=== PATIENT | female | born 1960 | race Caucasian/White ===

== ENCOUNTER 2018-05-05 18:36 | Inpatient (IN) | payer SELFPAY ==
[2018-05-05 19:10] LABS: #Basophils 0.1 thou/uL (0.0-0.2); #Eosinphils 0.2 thou/uL (0.0-0.7); #Lymphocytes 3.6 thou/uL (1.20-3.40); #Monocytes 0.6 thou/uL (0.11-0.59); %Basophils 0.7 % (0.0-1.0); %Eosinophils 1.5 % (0.0-10.0); %Neutrophils 63.9 % (42.0-75.0); Hemoglobin 13.9 g/dL (12.0-16.0); Mean Corpuscular HGB CONC 33.5 g/dL (32.0-36.0); Mean Corpuscular Hemoglobin 29.3 pg (27.0-31.0); Mean Corpuscular Volume 87.6 fL (78.0-98.0); Mean Platelet Volume 7.1 fL (7.4-10.4); Platelet Count 418 thou/uL (130-400); RBC Distribution Width 12.5 % (11.5-14.5); Red Blood Cell (RBC) Count 4.74 mill/uL (4.20-5.40); White Blood Cell (WBC) Count 12.5 thou/uL (4.8-10.8)
[2018-05-05 19:12] LABS: Bilirubin Negative (Negative); Blood, Urine Negative (Negative); Clarity CLEAR (Clear); Glucose, Urine (Dipstick) Negative (Negative); Leukocyte Moderate (Negative); Nitrite Negative (Negative); Protein, Urine (Dipstick) Negative (Neg-Trace); Specific Gravity, Urine 1.019 (1.002-1.036); Urobilinogen 0.2 mg/dL (0.2-1.0)
[2018-05-05 19:14] LABS: Bacteria/HPF None Seen HPF (None Seen); Hyaline Casts/LPF 0-3 HYALINE CAST LPF (0-3 Hyaline); Pathc Cast-AUWi Flag 0.29 (0-2.49); RBC/HPF 0-3 HPF (0-3); Squamous Epithelial 0-3 HPF (0-3)
[2018-05-05 19:33] LABS: ALT (SGPT) 10 U/L (8-55); AST (SGOT) 20 U/L (5-34); Albumin 4.4 g/dL (3.5-5.0); Alkaline Phosphatase 136 U/L (40-150); Anion Gap 9 mmol/L (10-20); BUN (Urea Nitrogen) 13 mg/dL (9.8-20.1); Bilirubin, Total 0.3 mg/dL (0.2-1.2); Calc. Creatinine Clearance 0 mL/min (70-130); Calcium 9.9 mg/dL (7.8-10.44); Carbon Dioxide 34 mmol/L (22-29); Chloride 102 mmol/L (98-107); Estimated GFR-MDRD 53; Globulin 4.3 g/dL (2.4-3.5); Glucose 101 mg/dL (70-105); Lipase 30 U/L (8-78); Potassium 4.3 mmol/L (3.5-5.1); Protein, Total 8.7 g/dL (6.0-8.3); Sodium 141 mmol/L (136-145)
[2018-05-05] MEDS ORDERED: Morphine 2 MG/ML SYRINGE ONE (20:33)
[2018-05-05] MEDS ORDERED: Ketorolac Tromethamine 30 MG/ML VIAL ONE (20:33)
[2018-05-05] MEDS ORDERED: Ondansetron PF 4 MG/2 ML Vial ONE (20:33)
[2018-05-05 21:23] LABS: PTT 33.7 SEC (22.9-36.1); Prothrombin Time 12.9 SEC (12.0-14.7)
--- NOTE | 2018-05-05 21:23 | CT ---
CT ABDOMEN AND PELVIS WITHOUT CONTRAST: 05/05/2018 HISTORY: Right lower quadrant pain. Fever. COMPARISON: None. TECHNIQUE: Axial CT imaging obtained at 5 mm intervals, from the lung bases through the pubic symphysis, without contrast. Coronal reformatted imaging obtained. FINDINGS: There is a pulmonary nodule in the right middle lobe, unchanged when compared to a chest CT performed in 2014, measuring 7 mm. Small volume anterior pericardial fluid is noted, stable as well. Lack of contrast limits assessment of the viscera, bowel, and vascular structures, and for lymphadenopathy. There is no free intraperitoneal air noted. Multiple right upper quadrant post surgical clips are noted, suggesting prior cholecystectomy. The l iver, the spleen, the pancreas, the adrenal glands, and the kidneys are unremarkable. Small volume free fluid is noted in the pelvic cul-de-sac. There is scattered diverticulosis of the sigmoid colon with no evidence for diverticulitis. Numerous fluid-filled, mildly dilated loops of small bowel are seen proximally, within the left abdom en and the midline lower abdomen. Numerous distal decompressed small bowel loops are noted, with a t ransition point from distended small bowel to decompressed small bowel, in the anterior mid abdomen. Findings suggest small bowel obstruction. There is atherosclerotic calcification of the abdominal a timbo, mild and not well characterized on this exam. No acute osseous abnormality is seen. IMPRESSION: Evidence of small bowel obstruction with transition point from dilated to decompressed small bowel, i n the mid anterior lower abdomen. There is associated small volume free fluid in the pelvis. No elise dence for free intraperitoneal air. POS: [facility]
[2018-05-05 21:36] LABS: CKMB 1.7 ng/mL (0-6.6); Troponin I Less than 0.010 ng/mL (< 0.028)
[2018-05-05] MEDS ORDERED: Benzocaine 20% Spray 60 ML CAN ONE (21:48)
--- NOTE | 2018-05-05 21:54 | RAD ---
FRONTAL RADIOGRAPH CHEST: 05/05/2018 HISTORY: Preoperative patient. COMPARISON: 06/30/2013 FINDINGS: Clips in the right upper quadrant are noted, stable. No pneumothorax, pleural fluid, lobar consolida tion, or alveolar edema. IMPRESSION: No acute findings. POS: [facility]
[2018-05-06] MEDS ORDERED: Benzocaine 20% Spray 60 ML CAN PO PRN (00:24)
[2018-05-06] MEDS ORDERED: Cepastat Lozenges 1 LOZ PO PRN (00:25)
[2018-05-06 00:37] VITALS: BMI 28.3
[2018-05-06] MEDS ORDERED: Morphine 4 MG/ML VIAL SLOW IVP PRN ×3 (00:37→14:56)
[2018-05-06] MEDS ORDERED: Ondansetron ODT 4 MG TAB PO PRN (00:39)
[2018-05-06] MEDS: D5 1/2 NS w/20 mEq KCL 1,000 ML IV SCH ×2 (00:59→07:56)
[2018-05-06] MEDS: Ondansetron PF 4 MG/2 ML Vial IVP PRN ×4 (01:00→20:36)
[2018-05-06] MEDS: Pantoprazole 40 MG VIAL IVP SCH (07:56)
[2018-05-06] MEDS ORDERED: MD-Gastroview 120 ML BOT ONE (12:07)
[2018-05-06] MEDS: Ondansetron PF 4 MG/2 ML Vial SLOW IVP PRN ×2 (12:20→15:30)
[2018-05-06] MEDS ORDERED: Ondansetron ODT 8 MG TAB SL PRN (14:55)
[2018-05-06] MEDS ORDERED: Acetaminophen 1,000 MG in Premix Bag 1 BAG IVPB PRN (14:56)
[2018-05-06] MEDS: Lactated Ringer's 1,000 ML IV SCH (15:34)
--- NOTE | 2018-05-06 16:28 | RAD ---
CHEST ONE VIEW: 05/06/18 HISTORY: Chest pain. COMPARISON: Radiograph prior day. FINDINGS: Enteric tube is in place with tip at the gastric fundus. The lungs are hypoinflated with vascular crowd controller wding as well as bibasilar atelectasis. No pneumothorax. IMPRESSION: 1. The enteric tube tip at the gastric fundus. 2. Left layering with effusion as well as bibasilar atelectatic changes. POS: [facility]
[2018-05-06] MEDS: Ketorolac Tromethamine 30 MG/ML VIAL IVP PRN (18:03)
[2018-05-06] MEDS: Enoxaparin Sodium 40 MG/0.4 ML SYRINGE SC SCH (20:36)
--- NOTE | 2018-05-06 22:15 | RAD ---
SMALL BOWEL FOLLOW THROUGH: 05/06/18 HISTORY: Small bowel obstruction. FINDINGS: Via the patient's nasogastric tube, gastrografin was administered. 15 minutes following administratio n, there is contrast media within the duodenum proximally as well as the stomach. At 30 minutes, ther e is slight transit of contrast media into the proximal jejunum. On 45 minute imaging, the majority o f the contrast media is in the stomach. At one hour, there is some contrast media within proximal sma ll bowel loops which appear nondilated. Two hour imaging demonstrates opacification of a few dilated loops of small bowel in the mid abdomen/right lower quadrant. Similar findings are seen at three hour imaging. Five hour imaging demonstrates the contrast media to have reached the colon, extending into the region o the descending colon. IMPRESSION: The transit time of the contrast media from stomach to colon is delayed, between three and five hours . The contrast media does reach the colon, evidence that there is no complete small bowel obstruction . POS: [facility]
[2018-05-07] MEDS: Lactated Ringer's 1,000 ML IV SCH ×4 (01:01→20:31)
[2018-05-07] MEDS: Ondansetron PF 4 MG/2 ML Vial IVP PRN (01:37)
--- NOTE | 2018-05-07 08:39 | HP ---
HISTORY OF PRESENT ILLNESS: Evangelina Wong is a 57-year-old female who I saw years ago when her las t name was Robson for a laceration of her right forearm through a plate glass window accident. The pa markos reports to the hospital last night with a history consistent with a bowel obstruction. This pedroza s been going on for 3 days, abdominal pain, nausea, and vomiting. She has been admitted overnight wi th IV fluids, NG tube, 18 Mongolian. The patient had abdominal CAT scan at 6:00 p.m. yesterday revealin g findings consistent with probable bowel obstruction with a transition point. Pulmonary nodule, rig ht middle lobe, unchanged to CAT scan in 2013. No contrast was used. The patient has an NG tube in place and only 250 mL retrieved. She has been irrigated. Radiologically it was in good position. A bdominal x-rays this morning reveals some air fluid levels, some gas and stool in the colon and as st ated above few air fluid levels. White count is 12, hemoglobin 13. Comprehensive metabolic profile was normal. ALLERGIES: None. SOCIAL HISTORY: Tobacco none. Alcohol none. MEDICATIONS: Protonix, estradiol. PAST SURGICAL HISTORY: Three C-sections, total abdominal hysterectomy, bilateral salpingo-oophorecto my, open cholecystectomy, complex laceration right forearm repair that I performed years past. Upper endoscopy [address] Landin, 2006 normal colonoscopy, normal EGD 2006. In 11/1999 upper endosco py normal by Dr. Landin. PAST MEDICAL HISTORY: Elevated cholesterol. The patient had a colonoscopy in the last 5-10 years. 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 REVIEW OF SYSTEMS: Ten point noncontributory. PHYSICAL EXAMINATION: VITAL SIGNS: Height 4 foot 11, 140 pounds, 28 BMI. HEENT: Unremarkable. LUNGS: Clear to auscultation. CARDIAC: Regular rate and rhythm without murmur or gallop. ABDOMEN: Soft, slightly tender, some tympany. Bowel sounds diminished. NG tube in place. EXTREMITIES: Unremarkable. LABORATORY: White count 12, hemoglobin 13. Basic metabolic profile normal. ASSESSMENT AND PLAN: A bowel obstruction. We will obtain a small bowel follow through. Pending the se findings, she may need operative intervention according to the above facts. We will await small b owel follow through.
--- NOTE | 2018-05-07 09:01 | RAD ---
ABDOMEN TWO VIEWS: History: 57-year-old female with history of follow up small bowel obstruction. FINDINGS: There is some residual contrast media within the colon as well as in nondilated distal small bowel. T here is some sigmoid colon diverticulosis. IMPRESSION: Dilute contrast media within the colon and nondilated distal small bowel. POS: [facility]
[2018-05-07] MEDS: Pantoprazole 40 MG VIAL IVP SCH (09:36)
[2018-05-07] MEDS: Enoxaparin Sodium 40 MG/0.4 ML SYRINGE SC SCH (20:30)
[2018-05-08] MEDS: Lactated Ringer's 1,000 ML IV SCH ×2 (07:24→13:07)
[2018-05-08] MEDS: Pantoprazole 40 MG VIAL IVP SCH (08:57)
--- NOTE | 2018-05-08 09:40 | RAD ---
TWO VIEWS ABDOMEN: Comparison: 05-07-18 History: Small bowel obstruction. FINDINGS: Supine and upright views of the abdomen shows nonspecific, nonobstructed bowel gas pattern. Air and c ontrast is seen throughout the colon to the level of the rectum. Surgical clips are seen in the abdom en. The NG tube has been removed. IMPRESSION: Nonobstructed bowel gas pattern. POS: [facility]
[2018-05-08] MEDS: Ketorolac Tromethamine 30 MG/ML VIAL IVP PRN ×2 (13:51→21:37)
--- NOTE | 2018-05-08 20:26 | PRG ---
DATE OF SERVICE: 05/08/2018 SUBJECTIVE: Evangelina Wnog is feeling slightly bloated today. Temperature 98.5 degrees, pulse 73, and blood pressure 107/60. Laboratories; none today. Abdominal x-rays obtained today, revealed a nonspecific bowel gas pattern, however, the patient feels slightly bloated. She is attempting more regular diet. OBJECTIVE: LUNGS: Clear to auscultation. CARDIAC: Regular rate and rhythm without murmur or gallop. ABDOMEN: Soft, nontender. ASSESSMENT AND PLAN: Her abdominal x-rays reveal contrast residual in the colon. There does not appear to be dilated bowel loops. Has recalled on 05/06/2018, her small-bowel follow-through revealed a light transit of contrast to the colon taking 5 hours. She did have bowel movements subsequently. At this point, we will observe her and if she tolerates her diet, she may be able to go home tomorrow. Await observation over the next 24 hours. Job ID: [id number]
[2018-05-08] MEDS: Enoxaparin Sodium 40 MG/0.4 ML SYRINGE SC SCH (21:37)
[2018-05-09] MEDS: Ondansetron PF 4 MG/2 ML Vial IVP PRN ×2 (06:55→21:51)
[2018-05-09] MEDS: Polyethylene Glycol 3350 17 GM Packet PO SCH (10:15)
[2018-05-09] MEDS: Pantoprazole 40 MG VIAL IVP SCH (10:16)
[2018-05-09] MEDS: Ketorolac Tromethamine 30 MG/ML VIAL IVP PRN (21:51)
[2018-05-09] MEDS: Enoxaparin Sodium 40 MG/0.4 ML SYRINGE SC SCH (21:51)
--- NOTE | 2018-05-09 22:15 | PRG ---
DATE OF SERVICE: 05/09/2018 SUBJECTIVE: Ms. Wong is doing well today. No x-rays obtained. She feels slightly bloated, distended; although she has passed some gas. She is tolerating her regular diet, although feels bloated. OBJECTIVE: VITAL SIGNS: Temperature 98.1 degrees, pulse 62 and blood pressure 115/71. LUNGS: Clear to auscultation. CARDIAC: Regular rate and rhythm without murmur or gallop. ABDOMEN: Soft. Mild tympany. No guarding. No rebound. EXTREMITIES: Unremarkable. LABORATORY DATA: None. ASSESSMENT AND PLAN: Partial bowel obstruction. Continue soft low-fiber, low residue diet. Change to liquids as she is having cramps. Continue to observe for another day. Hopefully, she will be ready to discharge home this weekend. Job ID: [id number]
[2018-05-10] MEDS: Polyethylene Glycol 3350 17 GM Packet PO SCH (08:30)
[2018-05-10] MEDS: Pantoprazole 40 MG VIAL IVP SCH (08:30)
[2018-05-10] MEDS: Ondansetron PF 4 MG/2 ML Vial IVP PRN ×2 (10:22→21:23)
[2018-05-10] MEDS: D5 1/2 NS w/20 mEq KCL 1,000 ML IV SCH (15:04)
--- NOTE | 2018-05-10 20:20 | EKG ---
Test Reason : Blood Pressure : / mmHG Vent. Rate : 062 BPM Atrial Rate : 062 BPM P-R Int : 124 ms QRS Dur : 070 ms QT Int : 410 ms P-R-T Axes : 045 008 057 degrees QTc Int : 416 ms Normal sinus rhythm Low voltage QRS Cannot rule out Anterior infarct , age undetermined Abnormal ECG Confirmed by LAURA CHO, ROSE ([id number]), industrial editor ARGELIA MADRIGAL ([id number]) on 05/10/2018 8:20:03 PM Referred By: Confirmed By:ROSE SANCHEZ MD
[2018-05-10] MEDS: Enoxaparin Sodium 40 MG/0.4 ML SYRINGE SC SCH (21:22)
[2018-05-10] MEDS: Ketorolac Tromethamine 30 MG/ML VIAL IVP PRN (21:23)
[2018-05-11] MEDS: Ondansetron PF 4 MG/2 ML Vial IVP PRN (04:30)
[2018-05-11 06:12] LABS: #Basophils 0.1 thou/uL (0.0-0.2); #Eosinphils 0.1 thou/uL (0.0-0.7); #Lymphocytes 2.5 thou/uL (1.20-3.40); #Monocytes 0.5 thou/uL (0.11-0.59); #Neutrophils 3.1 thou/uL (1.40-6.50); %Basophils 0.8 % (0.0-1.0); %Eosinophils 2.1 % (0.0-10.0); %Lymphocytes 40.1 % (21.0-51.0); %Monocytes 7.5 % (0.0-10.0); %Neutrophils 49.5 % (42.0-75.0); Hemoglobin 11.8 g/dL (12.0-16.0); Mean Corpuscular HGB CONC 33.6 g/dL (32.0-36.0); Mean Corpuscular Hemoglobin 29.7 pg (27.0-31.0); Mean Corpuscular Volume 88.6 fL (78.0-98.0); Platelet Count 320 thou/uL (130-400); RBC Distribution Width 12.6 % (11.5-14.5); Red Blood Cell (RBC) Count 3.95 mill/uL (4.20-5.40); White Blood Cell (WBC) Count 6.3 thou/uL (4.8-10.8)
[2018-05-11 06:24] LABS: Phosphorus 3.4 mg/dL (2.3-4.7)
[2018-05-11] MEDS: D5 1/2 NS w/20 mEq KCL 1,000 ML IV SCH ×3 (08:29→18:04)
[2018-05-11] MEDS: Pantoprazole 40 MG VIAL IVP SCH (08:49)
[2018-05-11] MEDS: Polyethylene Glycol 3350 17 GM Packet PO SCH (08:55)
--- NOTE | 2018-05-11 10:11 | RAD ---
ABDOMEN TWO VIEWS: INDICATIONS: History of partial small bowel obstruction. FINDINGS: No dilated loops of bowel are present. Gas is present in the region of the rectum. Scattered surgic al clips within the right upper quadrant and lower midline abdomen are stable. No acute osseous abno rmality is noted. IMPRESSION: No obstructive changes seen involving the abdomen and pelvis. POS: [facility]
[2018-05-11 15:57] LABS: Anion Gap 9 mmol/L (10-20); BUN (Urea Nitrogen) 9 mg/dL (9.8-20.1); Calc. Creatinine Clearance 69 mL/min (70-130); Calcium 8.6 mg/dL (7.8-10.44); Carbon Dioxide 27 mmol/L (22-29); Chloride 109 mmol/L (98-107); Estimated GFR-MDRD 65; Glucose 94 mg/dL (70-105); Potassium 4.4 mmol/L (3.5-5.1); Sodium 141 mmol/L (136-145)
[2018-05-11] MEDS ORDERED: Iopamidol 370 76% 100 ML VIAL ONE (16:40)
[2018-05-11] MEDS: Enoxaparin Sodium 40 MG/0.4 ML SYRINGE SC SCH (20:28)
--- NOTE | 2018-05-11 21:49 | CT ---
CT ABDOMEN AND PELVIS WITH CONTRAST: Comparison: 05-05-18 History: Abdominal distention and pain since last Saturday. Technique: Multiple contiguous axial images were obtained in a CT of the abdomen and pelvis with cont rast. PO contrast was administered. Coronal reformats were performed. FINDINGS: Patient is status post cholecystectomy and hysterectomy. There is a subcentimeter hypodensity in the left lobe of the liver which is too small to definitely characterize but could represent a small cyst . The kidneys, adrenal glands, spleen and pancreas are unremarkable. No free air, free fluid, or stranding changes are seen in the abdomen or pelvis. There is scattered d iverticula in the colon. The small bowel is normal in caliber. The appendix is not see and may have b een removed. No abdominal or pelvic lymphadenopathy are seen. Atherosclerotic calcifications are seen in the aorta. The osseous structures, visualized inferior thorax are unremarkable. Stranding in the bilateral abdom inal wall is likely from recent injections. IMPRESSION: 1. No evidence of acute intraabdominal/pelvic abnormality. 2. Diverticulosis. POS: [facility]
[2018-05-12] MEDS ORDERED: Acetaminophen 1,000 MG in Premix Bag 1 BAG IVPB PRN (07:17)
[2018-05-12] MEDS ORDERED: Ketorolac Tromethamine 30 MG/ML VIAL IVP PRN (07:19)
[2018-05-12] MEDS: D5 1/2 NS w/20 mEq KCL 1,000 ML IV SCH ×2 (07:23→16:03)
[2018-05-12] MEDS: Pantoprazole 40 MG VIAL IVP SCH (08:22)
[2018-05-12] MEDS: Polyethylene Glycol 3350 17 GM Packet PO SCH ×2 (10:42→10:54)
[2018-05-12] MEDS: Ondansetron PF 4 MG/2 ML Vial IVP PRN (10:51)
[2018-05-12] MEDS ORDERED: Acetaminophen 500 MG TAB PO PRN (14:50)
--- NOTE | 2018-05-12 15:40 | PRG ---
DATE OF SERVICE: 05/12/2018 SUBJECTIVE: Judith is doing well today. CT scan oral IV contrast. There is no small bowel distention. The patient still feels occasionally bloating, for which she takes ice chips and liquids. OBJECTIVE: VITAL SIGNS: Temperature 98.1 degrees, pulse 62, blood pressure 117/60. LUNGS: Clear to auscultation. CARDIAC: Regular rate and rhythm without murmur or gallop. ABDOMEN: Soft and nontender. Bowel sounds present. ASSESSMENT AND PLAN: Nausea, occasional subjective bloating. We will advance her diet today. If she tolerates this well, plan to discharge home tomorrow; however, if she has problems, might consider other things such as diagnostic laparoscopy or upper endoscopy. Job ID: [id number]
[2018-05-12] MEDS: Enoxaparin Sodium 40 MG/0.4 ML SYRINGE SC SCH (20:08)
[2018-05-13] MEDS: D5 1/2 NS w/20 mEq KCL 1,000 ML IV SCH ×4 (01:11→21:39)
[2018-05-13] MEDS: Polyethylene Glycol 3350 17 GM Packet PO SCH (08:24)
[2018-05-13] MEDS ORDERED: Meropenem 2 GM in Sodium Chloride 0.9% 100 ML IVPB SCH (08:45)
--- NOTE | 2018-05-13 10:27 | PRG ---
DATE OF SERVICE: 05/13/2018 SUBJECTIVE: Evangelina Wong still feels bloated and nauseated every time she eats. Early in her hospitalization, she had a small bowel follow-through with marked delay of contrast taking more than 3 hours. Due to her postprandial complaints, we will plan laparoscopic possible laparotomy today. Risks and benefits explained. She consents. OBJECTIVE: LUNGS: Clear to auscultation. CARDIAC: Regular rate and rhythm without murmur or gallop. ABDOMEN: Soft, mildly distended, mildly tympanitic. VITAL SIGNS: Temperature 97.6 degrees, heart rate 60, blood pressure 118/69. ASSESSMENT AND PLAN: She has not had a bowel movement in the last several days and continues to complain of postprandial pain. Job ID: [id number]
[2018-05-13] MEDS: Enoxaparin Sodium 40 MG/0.4 ML SYRINGE SC SCH (21:37)
[2018-05-13] MEDS: Ondansetron PF 4 MG/2 ML Vial IVP PRN (21:48)
[2018-05-14] MEDS: D5 1/2 NS w/20 mEq KCL 1,000 ML IV SCH (02:54)
[2018-05-14] MEDS ORDERED: Fentanyl 250 MCG/5 ML VIAL ONE (06:21)
[2018-05-14] MEDS ORDERED: Bupivacaine/Epinephrine 0.25% 30 ML VIAL ONE (06:31)
[2018-05-14] MEDS ORDERED: Ketorolac Tromethamine 30 MG/ML VIAL ONE (06:38)
[2018-05-14] MEDS ORDERED: Bupivacaine HCl 0.5%/Epinephrine 1:200,000/PF 30 ml Vial ONE (06:42)
[2018-05-14] MEDS ORDERED: Meropenem 2 GM in Sodium Chloride 0.9% 100 ML IVPB SCH (07:00)
[2018-05-14] MEDS ORDERED: cefOXitin Sodium/Dextrose,Iso 2 GM in Premix Bag 1 BAG IVPB SCH (07:00)
[2018-05-14] MEDS ORDERED: Promethazine HCl 25 MG/ML VIAL SLOW IVP PRN ×2 (09:52)
[2018-05-14] MEDS ORDERED: PACU-Morphine 4MG/ML VIAL SLOW IVP PRN (09:52)
[2018-05-14] MEDS ORDERED: Ondansetron HCl/PF 4 MG/2 ML Vial IVP PRN ×2 (09:52)
[2018-05-14] MEDS ORDERED: HYDROmorphone 2 MG/ML VIAL SLOW IVP PRN (09:52)
[2018-05-14] MEDS ORDERED: Morphine Sulfate 2 MG/ML SYRINGE SLOW IVP PRN (09:52)
[2018-05-14] MEDS ORDERED: Promethazine HCl 25 MG/ML VIAL IM PRN ×2 (09:52)
[2018-05-14] MEDS ORDERED: Meperidine HCl/PF 25 MG/ML VIAL SLOW IVP PRN (09:52)
[2018-05-14] MEDS ORDERED: Zolpidem Tartrate 5 MG TAB PO PRN (10:15)
[2018-05-14] MEDS ORDERED: diphenhydrAMINE 50 MG/ML VIAL IM PRN (10:15)
[2018-05-14] MEDS ORDERED: diphenhydrAMINE 25 MG CAP PO PRN (10:15)
[2018-05-14] MEDS ORDERED: Naloxone HCl 0.4 mg/ml Vial IV PRN (10:15)
[2018-05-14] MEDS ORDERED: Morphine CADD 1 MG/ML CADD IVPB PRN (10:15)
[2018-05-14] MEDS ORDERED: diphenhydrAMINE 50 MG/ML VIAL IVP PRN (10:15)
[2018-05-14] MEDS ORDERED: Communication Order-Pharmacy FS SCH (10:15)
[2018-05-14] MEDS ORDERED: Fentanyl 100 MCG/2 ML VIAL ONE (10:25)
[2018-05-14] MEDS: Acetaminophen 1,000 MG in Premix Bag 1 BAG IVPB SCH ×2 (12:27→17:46)
[2018-05-14] MEDS: Lactated Ringer's 1,000 ML IV SCH ×2 (12:28→17:54)
[2018-05-14] MEDS: Ketorolac Tromethamine 30 MG/ML VIAL IVP SCH ×2 (12:28→17:46)
--- NOTE | 2018-05-14 13:13 | OP ---
DATE OF PROCEDURE: 05/14/2018 PREOPERATIVE DIAGNOSES: Partial bowel obstruction, adhesions from prior surgery. POSTOPERATIVE DIAGNOSES: Partial bowel obstruction, adhesions from prior surgery. PROCEDURE PERFORMED: Laparoscopic converted to open laparotomy with adhesiolysis. ANESTHESIA: General and local with 0.5% Marcaine with epinephrine infiltrating the skin and subcutaneous tissue about the laparoscopic trocar sites, left lateral abdomen. Seprafilm used. DESCRIPTION OF PROCEDURE: The patient was taken to the operating room, where under general anesthesia abdomen was prepared with ChloraPrep and draped in routine fashion. Joshi was placed at the beginning of the procedure and removed at the end. Left lateral subcostal incision was made. Pneumoperitoneum to 15 mmHg was obtained with a Veress needle, replaced with a 5 port, and the laparoscope inserted. There were adhesion-free areas in the left lateral abdomen and left lower quadrant. A lateral abdominal incision was made, and a 5 port was placed. Laparoscopic adhesiolysis was undertaken freeing the omentum and enabling visualization, but I could not adequately visualize the small bowel. The adhesions were so severe. Thus, a midline incision was made and carried down through skin and subcutaneous tissue and centered about the umbilicus. The abdominal cavity entered and adhesions were taken down. There were extensive small bowel adhesions with some segmental loop distention. Complete adhesiolysis was completed from the ileocecal valve to the ligament of Treitz. Small bowel was run three times, and seromuscular tear was closed with 3-0 silk Lembert sutures. No stool spillage occurred. Abdominal cavity was irrigated. Sponge and needle counts were correct. Seprafilm was placed between the omentum and the abdominal wall and fascia approximated with #1 PDS and skin with christa. Sterile dressing applied. Job ID: [id number]
[2018-05-14] MEDS: Ondansetron PF 4 MG/2 ML Vial IVP PRN ×2 (13:45→21:12)
[2018-05-14] MEDS ORDERED: Succinylcholine Chloride 20 MG/ML 10 ml SYRINGE FS ONE (16:45)
[2018-05-14] MEDS ORDERED: Lidocaine 1% PF 5 ML VIAL ONE (16:45)
[2018-05-14] MEDS ORDERED: PROPOFOL 200 MG/20 ML VIAL ONE (16:45)
[2018-05-14] MEDS ORDERED: PHENYLEPHRINE-NS 100 MCG/ML 10 ML SYRINGE ONE (16:45)
[2018-05-14] MEDS ORDERED: ePHEDrine/0.9% NaCl/PF SYRINGE 50 mg/10 ml ONE (16:45)
[2018-05-14] MEDS ORDERED: Ondansetron PF 4 MG/2 ML Vial ONE (16:45)
[2018-05-14] MEDS ORDERED: Glycopyrrolate 0.2 MG/ML 5 ML SYRINGE ONE (16:45)
[2018-05-14] MEDS ORDERED: Dexamethasone 20 MG/5 ML VIAL ONE (16:45)
[2018-05-14] MEDS: Enoxaparin Sodium 40 MG/0.4 ML SYRINGE SC SCH (21:12)
[2018-05-15] MEDS: Acetaminophen 1,000 MG in Premix Bag 1 BAG IVPB SCH ×4 (00:49→18:26)
[2018-05-15] MEDS: Ketorolac Tromethamine 30 MG/ML VIAL IVP SCH ×4 (00:49→18:26)
[2018-05-15] MEDS: Ondansetron PF 4 MG/2 ML Vial IVP PRN ×3 (04:20→19:56)
[2018-05-15] MEDS: Lactated Ringer's 1,000 ML IV SCH ×3 (04:48→18:26)
[2018-05-15 06:44] LABS: Anion Gap 12 mmol/L (10-20); BUN (Urea Nitrogen) 13 mg/dL (9.8-20.1); Calc. Creatinine Clearance 63 mL/min (70-130); Calcium 8.7 mg/dL (7.8-10.44); Carbon Dioxide 25 mmol/L (22-29); Chloride 103 mmol/L (98-107); Estimated GFR-MDRD 58; Glucose 104 mg/dL (70-105); Potassium 4.7 mmol/L (3.5-5.1); Sodium 135 mmol/L (136-145)
[2018-05-15 06:54] LABS: #Lymphocytes 1.7 thou/uL (1.20-3.40); #Monocytes 0.7 thou/uL (0.11-0.59); #Neutrophils 9.4 thou/uL (1.40-6.50); %Eosinophils 0.1 % (0.0-10.0); %Lymphocytes 14.3 % (21.0-51.0); %Monocytes 6.1 % (0.0-10.0); %Neutrophils 79.5 % (42.0-75.0); Hemoglobin 10.6 g/dL (12.0-16.0); Mean Corpuscular HGB CONC 30.8 g/dL (32.0-36.0); Mean Corpuscular Hemoglobin 27.8 pg (27.0-31.0); Mean Corpuscular Volume 90.1 fL (78.0-98.0); Mean Platelet Volume 7.8 fL (7.4-10.4); Platelet Count 321 thou/uL (130-400); RBC Distribution Width 12.9 % (11.5-14.5); White Blood Cell (WBC) Count 11.8 thou/uL (4.8-10.8)
[2018-05-15] MEDS: Pantoprazole 40 MG VIAL IVP SCH (09:01)
--- NOTE | 2018-05-15 15:31 | PRG ---
DATE OF SERVICE: 05/15/2018 SUBJECTIVE: Evangelina Wong is doing well today. OBJECTIVE: VITAL SIGNS: 98 degrees, 59, 92/56. LUNGS: Clear to auscultation. CARDIAC: Regular rate and rhythm without murmur or gallop. ABDOMEN: Soft. No bowel sounds. NG tube in place, 50 mL over 24 hours. LABORATORY DATA: White count 11, hemoglobin 10. Basic metabolic profile normal. ASSESSMENT AND PLAN: One day status post extensive adhesiolysis laparotomy. Adhesions are too extensive to do laparoscopically. There is no bowel dilation. No spillage. Await ileus resolution. Consider removal of NG tube in the next 24 hours. Pending clinical course. Increase activity. Ambulate and up in the chair and incentive spirometer use. She is on deep venous thrombosis prophylaxis. Lovenox daily. Job ID: [id number]
[2018-05-15] MEDS: Enoxaparin Sodium 40 MG/0.4 ML SYRINGE SC SCH (20:01)
[2018-05-15] MEDS: Promethazine HCl 25 MG/ML VIAL IM PRN (21:19)
[2018-05-16] MEDS: Ketorolac Tromethamine 30 MG/ML VIAL IVP SCH ×4 (00:17→17:30)
[2018-05-16] MEDS: Acetaminophen 1,000 MG in Premix Bag 1 BAG IVPB SCH ×4 (00:17→17:29)
[2018-05-16] MEDS: Lactated Ringer's 1,000 ML IV SCH ×3 (03:52→14:42)
[2018-05-16] MEDS: Promethazine HCl 25 MG/ML VIAL IM PRN (04:03)
[2018-05-16] MEDS: Pantoprazole 40 MG VIAL IVP SCH (09:27)
[2018-05-16] MEDS: Ondansetron PF 4 MG/2 ML Vial IVP PRN (14:39)
--- NOTE | 2018-05-16 19:18 | PRG ---
DATE OF SERVICE: 05/16/2018 SUBJECTIVE: Ms. Wong is doing well today. OBJECTIVE: VITAL SIGNS: Temperature 97.7, pulse 75, and blood pressure 109/68. Gastric output 250 per 24 hours. LUNGS: Clear to auscultation. CARDIAC: Regular rate and rhythm without murmur or gallop. ABDOMEN: Soft. Bowel sounds present. EXTREMITIES: Unremarkable. LABORATORY DATA: No laboratories today. ASSESSMENT AND PLAN: Await better GI function. Continue NG tube tonight. Hopefully, we can remove tomorrow. Good activity level. Remove abdominal dressings. Job ID: [id number]
[2018-05-16] MEDS: Enoxaparin Sodium 40 MG/0.4 ML SYRINGE SC SCH (22:52)
[2018-05-17] MEDS: Acetaminophen 1,000 MG in Premix Bag 1 BAG IVPB SCH ×3 (00:26→12:25)
[2018-05-17] MEDS: Ketorolac Tromethamine 30 MG/ML VIAL IVP SCH ×4 (00:27→17:30)
[2018-05-17] MEDS: Lactated Ringer's 1,000 ML IV SCH ×3 (00:34→17:30)
[2018-05-17] MEDS: Pantoprazole 40 MG VIAL IVP SCH (08:21)
[2018-05-17] MEDS ORDERED: Morphine 2 MG/ML SYRINGE SLOW IVP PRN (12:08)
--- NOTE | 2018-05-17 12:24 | PRG ---
DATE OF SERVICE: 05/17/2018 SUBJECTIVE: Evangelina Wong is doing well today. Her NG tube came out. registration officer, it was left out. It was found to be at 30 cm in her esophagus and was gagging her, thus it was removed. She has not had any nausea or vomiting since. LABORATORY DATA: White count 11, hemoglobin 10.6. Basic metabolic profile normal 2 days ago. OBJECTIVE: VITAL SIGNS: Temperature 97.7 degrees, pulse 64, and blood pressure 99/63. LUNGS: Clear to auscultation. CARDIAC: Regular rate and rhythm without murmur or gallop. ABDOMEN: Soft. Occasional bowel sounds. Wound looks good. EXTREMITIES: Unremarkable. ASSESSMENT AND PLAN: Postop adhesiolysis. NG tube will be left out. She will continue on sips and chips. Reassess her tomorrow as far as diet advancement based on clinical course today. Job ID: [id number]
[2018-05-17] MEDS: Enoxaparin Sodium 40 MG/0.4 ML SYRINGE SC SCH (20:53)
[2018-05-18] MEDS: Ketorolac Tromethamine 30 MG/ML VIAL IVP SCH ×4 (00:24→18:07)
[2018-05-18] MEDS: Lactated Ringer's 1,000 ML IV SCH ×4 (00:28→18:10)
[2018-05-18] MEDS: Pantoprazole 40 MG VIAL IVP SCH (08:04)
--- NOTE | 2018-05-18 16:21 | PRG ---
DATE OF SERVICE: 05/18/2018 SUBJECTIVE: Evangelina Wong is doing well today. She has not had any nausea or vomiting. She has not had any belching. She has not passed any flatus or stool. OBJECTIVE: LUNGS: Clear to auscultation. CARDIAC: Regular rate and rhythm without murmur or gallop. ABDOMEN: Soft. Diminished bowel sounds. EXTREMITIES: Wound well healed. No wound problems. VITAL SIGNS: Temperature 97.5 degrees, pulse 81, and blood pressure 146/80. LABORATORY DATA: No laboratories today. ASSESSMENT AND PLAN: Begin clear liquids, go slow if she has any nausea, bloating, belching, indigestion, pain, would diminish her input. Continue IV fluids and start a trial clear liquids p.o. Job ID: [id number]
[2018-05-18] MEDS: Enoxaparin Sodium 40 MG/0.4 ML SYRINGE SC SCH (21:13)
[2018-05-19] MEDS: Ketorolac Tromethamine 30 MG/ML VIAL IVP SCH ×3 (04:34→11:44)
[2018-05-19] MEDS: Lactated Ringer's 1,000 ML IV SCH ×3 (04:35→20:46)
[2018-05-19] MEDS: Pantoprazole 40 MG VIAL IVP SCH (08:48)
--- NOTE | 2018-05-19 17:48 | PRG ---
DATE OF SERVICE: 05/19/2018 SUBJECTIVE: Ms. Wong is doing well today. She is not passing gas or stool. She, however, is tolerating liquids. OBJECTIVE: VITAL SIGNS: 98.3, 75, 129/89. HEAD, EYES, EARS, NOSE, AND THROAT: Unremarkable. LUNGS: Clear to auscultation. CARDIAC: Regular rate and rhythm without murmur or gallop. ABDOMEN: Soft. Bowel sounds present. Nontender. EXTREMITIES: Unremarkable. ASSESSMENT AND PLAN: The patient is doing well. Continue clear liquids until better evidence of bowel function. Advance her diet when she has bowel movement and passes flatus. Continue IV fluids. Job ID: [id number]
[2018-05-19] MEDS: Enoxaparin Sodium 40 MG/0.4 ML SYRINGE SC SCH (20:47)
[2018-05-20] MEDS: Lactated Ringer's 1,000 ML IV SCH (09:03)
[2018-05-20] MEDS: Pantoprazole 40 MG VIAL IVP SCH (09:03)
[2018-05-20] MEDS ORDERED: Ibuprofen 600 MG TAB PO PRN (10:41)
[2018-05-20] MEDS ORDERED: traMADol HCl 50 MG TAB PO PRN ×2 (10:41)
[2018-05-20] MEDS ORDERED: Acetaminophen 500 MG TAB PO PRN (10:41)
--- NOTE | 2018-05-20 12:02 | PRG ---
DATE OF SERVICE: 05/20/2018 SUBJECTIVE: Evangelina Wong is doing well today. She has had a bowel movement. She has passed flatus. OBJECTIVE: VITAL SIGNS: 97.4 degrees, 61, 94% on room air, 121/67. LUNGS: Clear to auscultation. CARDIAC: Regular rate and rhythm without murmur or gallop. ABDOMEN: Soft, nontender. Bowel sounds present. Positive bowel movements. EXTREMITIES: Unremarkable. Negative Homans. No ankle edema. The patient is postoperative day #6. LABORATORY DATA: None. ASSESSMENT AND PLAN: Doing well. Bowel function recovering. I advanced diet to full liquids and advanced regular diet as tolerated. The patient can be discharged home today with followup in my office next week for balance of staple removal. We will remove 2/3 of her christa today and put Mastisol and Steri-Strips. Avoid lifting over 25 pounds. The patient will advance her diet as tolerated at home. She will be given Ultram for pain. Job ID: [id number]
[2018-05-20 15:42] VITALS: BP 122/81; TEMP 98.2
--- NOTE | 2018-05-21 05:19 | DIS ---
DATE OF ADMISSION: 05/05/2018 DATE OF DISCHARGE: 05/20/2018 PROCEDURES: CAT scan of the abdomen and pelvis on admission 05/05/2018, suggesting small bowel obstruction. Small-bowel follow through on 05/06/2018, revealing delayed transit to the colon after 5 hours, trial of nonoperative treatment, repeating CAT scan of abdomen and pelvis on 05/11/2018, revealing diverticulosis. Operation on 05/14/2018, for the patient's persistent complaints of nausea, bloating, postprandial. Her x-rays continued to demonstrate some distended small bowel loops. The patient was found to have extensive adhesions required conversion from laparoscopy to laparotomy. HISTORY: A 58-year-old female with prior surgical history of three C-sections, hysterectomy, bilateral salpingo-oophorectomy, open cholecystectomy, upper endoscopy [place] [address] Landin; in 2006, normal colonoscopy and normal esophagogastroduodenoscopy, presents with obstructive symptoms with above radiological findings. Trial of nonoperative therapy given even after a 5-hour delayed Gastrografin contrast transit to her colon. She, however, continued to have postprandial symptoms, could not tolerate her diet, undergone the above-described operation. She has had an expected ileus postoperatively, resolving and advancing her diet, resuming bowel function, discharged home with Ultram, Tylenol, and Motrin p.r.n. for pain. Job ID: [id number]
[2018-05-21] MEDS ORDERED: Polyethylene Glycol 3350 17 GM Packet PO SCH (09:00)
--- NOTE | 2018-05-21 09:06 | PQF ---
Evangelina Wong RICHARD D MD [id number] SURG B- [id number] CLINICAL DOCUMENTATION CLARIFICATION FORM: POST DISCHARGE DATE: 05/21/2018 ATTN: Dr. Izaguirre Please exercise your independent, professional judgment in responding to the clarification form. Clinical indicators are provided on the bottom of this form for your review Please check appropriate box(s): In the description of the operative procedure a seromuscular tear was noted by the surgeon. If possible would you please further clarify if this was: [ ] Seromuscular tear was an incidental occurrence inherent in the surgical procedure [ ] Seromuscular tear was a complication of the procedure [ ] Other (please specify) [ ] Unable to determine For continuity of documentation, please document condition throughout progress notes and discharge summary. Thank You. CLINICAL INDICATORS - SIGNS / SYMPTOMS / LABS Per body of operative report: Small bowel was run three times and seromuscular tear was closed with 3-0 silk Lembert sutures. No stool spillage occurred. RISK FACTORS Per operative report: Laparoscopic converted to open adhesiolysis due to severity of adhesions. There were extensive small bowel adhesions with some segmental loop distention. TREATMENTS: Per operative report: Laparoscopic converted to open laparotomy with adhesiolysis 05/14/18. (This form is maintained as a part of the permanent medical record) 2014 [employer]. All Rights Reserved [email or web address] [phone] [email or web address]
--- NOTE | 2018-05-21 09:31 | PQF ---
Evangelina Wong RICHARD D MD [id number] SURG B- 3328 [id number] CLINICAL DOCUMENTATION CLARIFICATION FORM: POST DISCHARGE DATE: 05/21/2018 ATTN: Dr. Izaguirre Please exercise your independent, professional judgment in responding to the clarification form. Clinical indicators are provided on the bottom of this form for your review Please check appropriate box(s): [ ] Expected postoperative ileus is a complication due to current surgery [ ] Expected postoperative ileus is not a complication due to current surgery [ ] Other diagnosis (please specify) [ ] Unable to determine In addition, please specify: Present on Admission (POA): [ ] Yes [ ] No [ ] Unable to determine CLINICAL INDICATORS - SIGNS / SYMPTOMS / LABS Per discharge summary: She has had an expected ileus postoperatively, resolving and advancing her diet, resuming bowel function. Per 05/15 progress note: Await ileus resolution. Per 05/16 progress note: Await better GI function. Per 05/17 progress note: Occasional bowel sounds. She will continue on sips and chips. Per 05/18 progress note: No nausea or vomiting. No belching. No flatus or stool. Diminished bowel sounds. Begin clear liquids. Per 05/19 progress note: She is not passing gas or stool. Is tolerating liquids. Continue clear liquids until better evidence of bowel function. Advance diet when she has bowel movement and passes flatus. Continue IV fluids. Per 05/20 progress note: She has had a bowel movement. Se has passed flatus. Bowel function recovering. Advanced diet to full liquids and advance regular diet as tolerated. RISK FACTORS Status post laparoscopic converted to open lysis of small bowel adhesions . TREATMENT: NG tube. IV Fluids. Clear liquids. (This form is maintained as a part of the permanent medical record) 2014 [employer]. All Rights Reserved [email or web address] [phone] [email or web address]
== END 2018-05-20 17:34 | disposition home or self-care (01) | DRG 337 ==
LOC: ERS 18:36 → SURG B 21:17
PROVIDERS: ADMIT Specialist; ATTEND Specialist
PROC: 0DN80ZZ Release Small Intestine, Open Approach (ICD-10-PCS; principal; 2018-05-14)
PROC: 0DNU4ZZ Release Omentum, Percutaneous Endoscopic Approach (ICD-10-PCS; 2018-05-14)
DX: K56.51 Intestinal adhesions [bands], with partial obstruction (principal); K56.7 Ileus, unspecified
CPT/HCPCS: 36415; 71045; 74019; 74022; 74176; 74177; 74250; 80048; 80053; 81003; 81015; 82553; 83690; 83735; 83880; 84100; 84134; 84484; 85025; 85610; 85730; 90471; 90686; 93005; 96365; 96366; 96375; C9113; G0008; J0131; J0670; J1100; J1650; J1885; J1956; J2001; J2270; J2274; J2405; J2550; J2704; J3010

== ENCOUNTER 2018-12-09 18:52 | Emergency (ER) | payer SELFPAY | END 2018-12-09 21:00 | disposition home or self-care (01) | LOC: ERS 18:52 | DX: S82.891D Other fracture of right lower leg, subsequent encounter for closed fracture with routine healing (principal); R11.0 Nausea; W18.2XXA Fall in (into) shower or empty bathtub, initial encounter | CPT/HCPCS: 29515 ==

== ENCOUNTER 2019-02-22 12:17 | Emergency (ER) | payer SELFPAY ==
[2019-02-22 12:37] LABS: #Lymphocytes 1.2 thou/uL (1.20-3.40); #Monocytes 0.4 thou/uL (0.11-0.59); %Basophils 0.3 % (0.0-1.0); %Eosinophils 0.8 % (0.0-10.0); %Lymphocytes 21.5 % (21.0-51.0); %Monocytes 7.2 % (0.0-10.0); %Neutrophils 70.1 % (42.0-75.0); Hemoglobin 13.1 g/dL (12.0-16.0); Mean Corpuscular HGB CONC 33.7 g/dL (32.0-36.0); Mean Corpuscular Hemoglobin 30.3 pg (27.0-31.0); Mean Corpuscular Volume 89.7 fL (78.0-98.0); Mean Platelet Volume 6.9 fL (7.4-10.4); Platelet Count 323 thou/uL (130-400); RBC Distribution Width 12.4 % (11.5-14.5); Red Blood Cell (RBC) Count 4.33 mill/uL (4.20-5.40); White Blood Cell (WBC) Count 5.7 thou/uL (4.8-10.8)
[2019-02-22 13:00] LABS: ALT (SGPT) 9 U/L (8-55); AST (SGOT) 17 U/L (5-34); Albumin 4.2 g/dL (3.5-5.0); Alkaline Phosphatase 137 U/L (40-150); Anion Gap 13 mmol/L (10-20); BUN (Urea Nitrogen) 13 mg/dL (9.8-20.1); Bilirubin, Total 0.3 mg/dL (0.2-1.2); Calc. Creatinine Clearance 0 mL/min (70-130); Calcium 9.3 mg/dL (7.8-10.44); Carbon Dioxide 25 mmol/L (22-29); Chloride 106 mmol/L (98-107); Estimated GFR-MDRD 64; Globulin 3.3 g/dL (2.4-3.5); Glucose 105 mg/dL (70-105); Lipase 22 U/L (8-78); Potassium 4.1 mmol/L (3.5-5.1); Protein, Total 7.5 g/dL (6.0-8.3); Sodium 140 mmol/L (136-145)
[2019-02-22] MEDS ORDERED: Iopamidol 370 76% 50 ML VIAL FS ONE (13:03)
[2019-02-22] MEDS ORDERED: ISOVUE-370 76%-LOCM 1 ML ONE (13:03)
[2019-02-22] MEDS ORDERED: Morphine 4 MG/ML VIAL ONE (13:18)
[2019-02-22] MEDS ORDERED: Ondansetron PF 4 MG/2 ML Vial ONE (13:18)
[2019-02-22 13:32] LABS: Bilirubin Negative (Negative); Blood, Urine Negative (Negative); Clarity Clear (Clear); Glucose, Urine (Dipstick) Normal (Negative); Leukocyte 25 Leu/uL (Negative); Nitrite Negative (Negative); Protein, Urine (Dipstick) Negative (Neg-Trace); RBC/HPF 0-3 HPF (0-3); Squamous Epithelial 0-3 HPF (0-3); Urobilinogen Normal mg/dL (Less than 2); WBC/HPF 0-3 HPF (0-3)
[2019-02-22 13:38] LABS: Bacteria/HPF None Seen HPF (None Seen)
[2019-02-22] MEDS ORDERED: Pantoprazole 40 MG VIAL ONE (14:26)
[2019-02-22] MEDS ORDERED: diphenhydrAMINE 50 MG/ML VIAL ONE (15:05)
--- NOTE | 2019-02-22 16:25 | CT ---
EXAM: CT ABDOMEN AND PELVIS HISTORY: Abdominal pain, x3 days. COMPARISON: 07/05/2018 Correlation: Chest CT 07/02/2013 Procedure: Multiple contiguous axial images were obtained and a CT of the abdomen and pelvis with IV contrast. C oronal reformats were performed. FINDINGS: Lower Chest: Stable 7 mm nodule in the right lower lobe. No change since June 2013. Vessels: Normal caliber aorta. Heart: Normal heart size. No significant pericardial fluid Abdomen: Portal vein:Patent Gallbladder: Surgically absent Liver: No enhancing masses. 6 mm hypodensity in the left hepatic lobe, unchanged from chest CT 2013. Hepatic cyst is favored. Pancreas: within normal limits. Spleen: within normal limits. Adrenals: within normal limits. Kidneys: Symmetric enhancement. No obstructive uropathy Peritoneum: No ascites or free air, no fluid collection. Bowel: Gastric mucosa, duodenum and multiple normal caliber small bowel loops. Ileocecal junction is normal. Appendix is not appreciated. No inflammation of the cecal apex. There are scattered fecal material in a nondistended, nondilated colon. Diverticulosis. No diverticulitis. Mesentery and Retroperitoneum: There are scattered nonspecific, nonenlarged mesenteric lymph nodes. L ymph nodes are unchanged from previous exam. Abdominal Wall: within normal limits. Pelvis: Reproductive Organs: Surgically absent uterus Pelvis: within normal limits. Bladder: within normal limits. Bones: within normal limits. IMPRESSION: No evidence of acute intraabdominal\pelvic abnormality.
== END 2019-02-22 16:59 | disposition home or self-care (01) ==
LOC: ERS 12:17
DX: R10.31 Right lower quadrant pain (principal)
CPT/HCPCS: 36415; 74177; 80053; 81003; 81015; 83690; 85025; 96374; 96375; C9113; J1200; J2270; J2405; Q9966; Q9967

== ENCOUNTER 2020-09-13 17:39 | Emergency (ER) | payer SELFPAY | END 2020-09-13 19:22 | disposition home or self-care (01) | LOC: ERS 17:39 | DX: M25.532 Pain in left wrist (principal); E78.5 Hyperlipidemia, unspecified; K56.609 Unspecified intestinal obstruction, unspecified as to partial versus complete obstruction; Z79.891 Long term (current) use of opiate analgesic ==

== ENCOUNTER 2021-07-31 07:50 | Emergency (ER) | payer SELFPAY ==
[2021-07-31 08:43] LABS: Bacteria/HPF None Seen HPF (None Seen); Bilirubin Negative (Negative); Blood, Urine Negative (Negative); Clarity Clear (Clear); Glucose, Urine (Dipstick) Normal (Negative); Ketone, Urine Negative (Negative); Leukocyte 75 Leu/uL (Negative); Nitrite Negative (Negative); Protein, Urine (Dipstick) Negative (Neg-Trace); RBC/HPF 0-3 HPF (0-3); Specific Gravity, Urine 1.017 (1.002-1.036); Squamous Epithelial None Seen HPF (0-3); Urobilinogen Normal mg/dL (Less than 2); WBC/HPF 0-3 HPF (0-3); pH, Urine 5.5 (5.0-9.0)
[2021-07-31 08:44] LABS: Pregnancy Test - Urine (BHCG) Negative (Negative); Pregu Control Background? CLEAR/WHITE (CLR/WHITE); Pregu Control Bar Appear? YES (CONTROL BAR); Specific Gravity 1.017 (1.002-1.036)
[2021-07-31 08:48] LABS: #Eosinphils 0.1 thou/uL (0.0-0.7); #Lymphocytes 2.1 thou/uL (1.20-3.40); #Monocytes 0.4 thou/uL (0.11-0.59); #Neutrophils 4.1 thou/uL (1.40-6.50); %Basophils 0.6 % (0.0-1.0); %Eosinophils 1.9 % (0.0-10.0); %Lymphocytes 30.9 % (21.0-51.0); %Monocytes 5.7 % (0.0-10.0); %Neutrophils 60.9 % (42.0-75.0); Hemoglobin 13.4 g/dL (12.0-16.0); Mean Corpuscular HGB CONC 32.6 g/dL (32.0-36.0); Mean Corpuscular Hemoglobin 29.7 pg (27.0-31.0); Mean Corpuscular Volume 91.1 fL (78.0-98.0); Mean Platelet Volume 7.1 fL (7.4-10.4); Platelet Count 303 thou/uL (130-400); Red Blood Cell (RBC) Count 4.51 mill/uL (4.20-5.40); White Blood Cell (WBC) Count 6.8 thou/uL (4.8-10.8)
[2021-07-31 09:02] LABS: Anion Gap 10 mmol/L (10-20); BUN (Urea Nitrogen) 12 mg/dL (9.8-20.1); Calc. Creatinine Clearance 0 mL/min (70-130); Carbon Dioxide 27 mmol/L (23-31); Chloride 108 mmol/L (98-107); Glucose 96 mg/dL (80-115); Lipase 27 U/L (8-78); Potassium 3.9 mmol/L (3.5-5.1); Sodium 141 mmol/L (136-145)
[2021-07-31] MEDS ORDERED: Morphine 4 MG/ML VIAL ONE (10:27)
[2021-07-31] MEDS ORDERED: Ondansetron PF 4 MG/2 ML Vial ONE (10:27)
[2021-07-31 10:42] LABS: ALT (SGPT) 7 U/L (8-55); AST (SGOT) 15 U/L (5-34); Albumin 3.9 g/dL (3.4-4.8); Alkaline Phosphatase 124 U/L (40-110); Bilirubin, Direct 0.1 mg/dL (0.1-0.3); Bilirubin, Total 0.3 mg/dL (0.2-1.2); Protein, Total 7.5 g/dL (5.8-8.1)
[2021-07-31] MEDS ORDERED: GASTROGRAFIN 30 ML BOT ONE (11:39)
[2021-07-31] MEDS ORDERED: Iopamidol-370 76% 500 ML 1 ML ONE (11:39)
== END 2021-07-31 13:26 | disposition home or self-care (01) ==
LOC: ERS 07:50
DX: K52.9 Noninfective gastroenteritis and colitis, unspecified (principal); E78.5 Hyperlipidemia, unspecified
CPT/HCPCS: 36415; 74177; 80048; 80076; 81003; 81015; 81025; 83690; 85025; 96374; 96375; J2270; J2405

== ENCOUNTER 2023-03-25 07:26 | Emergency (ER) | payer BC, SELFPAY ==
[2023-03-25 07:58] LABS: #Eosinphils 0.1 thou/uL (0.0-0.7); #Monocytes 0.4 thou/uL (0.11-0.59); #Neutrophils 8.6 thou/uL (1.40-6.50); %Basophils 0.3 % (0.0-1.0); %Eosinophils 0.5 % (0.0-10.0); %Lymphocytes 15.6 % (21.0-51.0); %Monocytes 3.7 % (0.0-10.0); %Neutrophils 79.7 % (42.0-75.0); Hematocrit 42.6 % (36.0-47.0); Hemoglobin 13.8 g/dL (12.0-16.0); Mean Corpuscular HGB CONC 32.4 g/dL (32.0-36.0); Mean Corpuscular Hemoglobin 28.9 pg (27.0-31.0); Mean Corpuscular Volume 89.3 fl (78.0-98.0); Mean Platelet Volume 9.7 fL (7.4-10.4); Platelet Count 350 10x3/uL (130-400); Red Blood Cell (RBC) Count 4.77 mill/uL (4.20-5.40); White Blood Cell (WBC) Count 10.8 10x3/uL (4.8-10.8)
[2023-03-25] MEDS ORDERED: Ondansetron PF 4 MG/2 ML Vial ONE (08:23)
[2023-03-25] MEDS ORDERED: Ketorolac Tromethamine 30 MG/ML VIAL ONE (08:23)
[2023-03-25 08:24] LABS: ALT (SGPT) 9 U/L (8-55); AST (SGOT) 20 U/L (5-34); Albumin 4.5 g/dL (3.4-4.8); Alkaline Phosphatase 123 U/L (40-110); Anion Gap 15 mmol/L (10-20); BUN (Urea Nitrogen) 12 mg/dL (9.8-20.1); Bilirubin, Total 0.2 mg/dL (0.2-1.2); Calc. Creatinine Clearance 0 mL/min (70-130); Calcium 9.5 mg/dL (7.8-10.44); Carbon Dioxide 25 mmol/L (23-31); Chloride 106 mmol/L (98-107); Estimated GFR 57; Globulin 3.4 g/dL (2.4-3.5); Glucose 96 mg/dL (80-115); Lipase 28 U/L (8-78); Potassium 4.3 mmol/L (3.5-5.1); Protein, Total 7.9 g/dL (5.8-8.1); Sodium 142 mmol/L (136-145)
[2023-03-25 08:28] LABS: Bilirubin Negative (Negative); Blood, Urine Negative (Negative); Glucose, Urine (Dipstick) Negative (Negative); Ketone, Urine Negative (Negative); Leukocyte Negative (Negative); Nitrite Negative (Negative); Protein, Urine (Dipstick) Negative (Neg-Trace); Specific Gravity, Urine 1.015 (1.005-1.030); Urobilinogen 0.2 mg/dL (Less than 2)
[2023-03-25 08:32] LABS: Clarity Clear (Clear)
[2023-03-25 08:34] LABS: Bacteria/HPF None Seen HPF (None Seen); CAUTI Indications for Culture Pelvic or flank pain; RBC/HPF None Seen HPF (0-3); Squamous Epithelial 0-3 HPF (0-3); WBC/HPF None Seen HPF (0-3)
[2023-03-25 08:35] LABS: Urine Culture Reflex No No
[2023-03-25] MEDS ORDERED: Iopamidol-370 76% 500 ML MDV (1 ML CHARGE) ONE (09:49)
== END 2023-03-25 09:07 | disposition home or self-care (01) ==
LOC: ERS 07:26
DX: R10.9 Unspecified abdominal pain (principal); E78.5 Hyperlipidemia, unspecified
CPT/HCPCS: 36415; 74177; 80053; 81001; 83690; 85025; 96374; 96375; J1885; J2405; Q9967